=== PATIENT | male | born 1970 | race African-American/Black ===

== ENCOUNTER 2016-12-06 09:45 | Day surgery (SDC) | payer OTHER ==
[~2016-12-06] VITALS: Ht 172.7 cm; Wt 111.1 kg
--- NOTE | ~2016-12-06 | EGD ---
EGD REPORT [facility] [address] [id number] NAME: STEVEN NINA JR : [birth year] STATUS : REG [facility]#: [id number] AGE: 46 ADM/REG DATE : 12/06/16 MR#: [id number] REPORT SERV DATE: 12/08/16 DICTATED BY: NEO SENIOR DATE: 12/08/16 REPORT STATUS : Draft TRANSCRIBED BY: [facility] DATE: 12/08/16 Endoscopy Center Patient Name: Steven Nina Date of : 1970 Attending MD: NEO SENIOR MD Procedure Date No Time: 12/06/2016 Procedure: Upper GI endoscopy Indications: Esophageal varices, For therapy of esophageal varices Medicines: Propofol per Anesthesia Complications: No immediate complications. Procedure: Pre-Anesthesia Assessment: - ASA Grade Assessment: III - A patient with severe systemic disease. After obtaining informed consent, the endoscope was passed under direct vision. Throughout the procedure, the patient's blood pressure, pulse, and oxygen saturations were monitored continuously. The GIF [id number] was introduced through the mouth, and advanced to the third part of duodenum. The upper GI endoscopy was accomplished without difficulty. The patient tolerated the procedure well. Findings: Grade III varices were found in the lower third of the esophagus. They were large in largest diameter. Five bands were successfully placed with complete eradication, resulting in deflation of varices. There was no bleeding during, and at the end, of the procedure. A small hiatus hernia was present. as seen on retroflexion done prior to banding the esophagus There is no endoscopic evidence of varices in the cardia. Diffuse mild inflammation characterized by congestion (edema) and erythema was found in the entire examined stomach. Localized mild inflammation characterized by congestion (edema) and erythema was found in the duodenal bulb. The 2nd part of the duodenum and 3rd part of the duodenum were normal. Impression: - Grade III esophageal varices. Completely eradicated. Banded. - Hiatus hernia. - Gastritis. - Duodenitis. - Normal 2nd part of the duodenum and 3rd part of the duodenum. Recommendation: - Patient has a contact number available for EGD REPORT [address] [address] NAME: STEVEN NINA : [birth year] STATUS : REG [facility] PAT#: [id number] AGE: 46 ADM/REG DATE : 12/06/16 MR#: [id number] REPORT SERV DATE: 12/08/16 DICTATED BY: NEO SENIOR DATE: 12/08/16 REPORT STATUS : Draft TRANSCRIBED BY: [facility] DATE: 12/08/16 emergencies. The signs and symptoms of potential delayed complications were discussed with the patient. Return to normal activities tomorrow. Written discharge instructions were provided to the patient. - Clear liquid diet today then. - Full liquid diet for 1 day then. - Return to previous diet. - Continue present medications. - Repeat the upper endoscopy in 1 month for endoscopic band ligation. - Return to my office as previously scheduled. - Discharge patient to home. Procedure Code(s): --- Professional --- 95639, Esophagogastroduodenoscopy, flexible, transoral; with band ligation of esophageal/gastric varices Diagnosis Code(s): --- Professional --- I85.00, Esophageal varices without bleeding K44.9, Diaphragmatic hernia without obstruction or gangrene K29.70, Gastritis, unspecified, without bleeding K29.80, Duodenitis without bleeding CPT copyright 2013 [employer]. All rights reserved. The codes documented in this report are preliminary and upon radio rigger review may be revised to meet current compliance requirements. Neo Senior MD NEO SENIOR MD 12/06/2016 2:47 PM This report has been signed electronically. Number of Addenda: 0 Note Initiated On: 12/06/2016 2:10 PM Scope Withdrawal Time 0 hours 0 minutes 0 seconds [address] [id number]
[~2016-12-06 09:45] MED LIST: COZAAR100 MG PO; I10 PO; KAPIDEX30 MG PO; PRILO PO; SUCR PO; URSO FORTE500 MG PO
== END 2016-12-06 23:59 | disposition home health service (06) ==
LOC: DMU 09:45
PROVIDERS: Internal Medicine Gastroenterology
PROC: 0W3P8ZZ Control Bleeding in Gastrointestinal Tract, Via Natural or Artificial Opening Endoscopic (ICD-10-PCS; principal; 2016-12-06 10:30)
DX: I85.00 Esophageal varices without bleeding (principal); K29.70 Gastritis, unspecified, without bleeding; K29.80 Duodenitis without bleeding; K44.9 Diaphragmatic hernia without obstruction or gangrene; K21.9 Gastro-esophageal reflux disease without esophagitis; I10 Essential (primary) hypertension; K74.3 Primary biliary cirrhosis; Z79.899 Other long term (current) drug therapy; Z98.890 Other specified postprocedural states